=== PATIENT | female | born 1990 | race Caucasian/White ===

== ENCOUNTER 2020-02-15 06:54 | Inpatient (IN) | payer MEDICAID ==
[2020-02-15] MEDS ORDERED: Misoprostol 50 MCG (1/2 of 100 MCG) Tab VAG ONE ×2 (07:29→11:53)
[2020-02-15] MEDS ORDERED: Misoprostol 50 MCG (1/2 of 100 MCG) Tab ONE (07:32)
[2020-02-15] MEDS ORDERED: Acetaminophen 325 MG Tab PO PRN (07:41)
[2020-02-15] MEDS ORDERED: fentaNYL 100 MCG/2 ML SDV IVPUSH PRN (07:41)
[2020-02-15] MEDS ORDERED: Sodium Chloride 0.9% 10 ML Syringe FLUSH PRN (07:41)
--- NOTE | 2020-02-15 07:52 | PCM.LDHP ---
L&D History of Present Illness - General Date of Service: 02/15/20 (induction for PIH & smoker) Admit Problem/Dx: Patient Status Order with Admit Dx/Problem 02/15/20 07:41 Patient Status [ADT] Routine Admission Diagnosis/Problem Admission Diagnosis/Problem induced hypertension, antepartum Source of Information: Patient History Limitations: Reports: No Limitations - History of Present Illness Introduction:: This 30 year old who is 39 weeks gestation with a history of PIH, smoking and contractions. She currently is on Labetalol 100 mg BID for her blood pressure. She smoker 5 cigarettes a day. Blood pressure as been controlled for medication. The baby has also measured 2 weeks larger then dates. Her previous deliveries have been induced and she general progresses quickly. NST this morning reactive. Labs: Covid is negative ABO A pos HIV neg GBS neg Rubella immune - Related Data Allergies/Adverse Reactions: Allergies Allergy/AdvReac Type Severity Reaction Status Date / Time No Known Allergies Allergy Verified 01/08/20 10:08 Home Medications: Home Meds Omeprazole Magnesium [Prilosec Otc] 20 mg PO DAILY 01/08/20 [History] #103/Iron Fumarate/Fa [ ] 1 each PO DAILY 01/08/20 [ History] NIFEdipine [Procardia] 10 mg PO Q6H #120 cap 01/11/20 [Rx] Past Medical History HEENT History: Reports: None Cardiovascular History: Reports: None Respiratory History: Reports: None Gastrointestinal History: Reports: GERD Genitourinary History: Reports: None 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 Para: 2 LMP (Approximate): Musculoskeletal History: Reports: None Neurological History: Reports: Migraines Psychiatric History: Reports: Anxiety Endocrine/Metabolic History: Reports: None Hematologic History: Reports: Anemia Immunologic History: Reports: None Oncologic (Cancer) History: Reports: None Dermatologic History: Reports: None - Infectious Disease History Infectious Disease History: Reports: Chicken Pox - Past Surgical History Head Surgeries/Procedures: Reports: None HEENT Surgical History: Reports: None Cardiovascular Surgical History: Reports: None Respiratory Surgical History: Reports: None GI Surgical History: Reports: Cholecystectomy Female Surgical History: Reports: None Endocrine Surgical History: Reports: None Neurological Surgical History: Reports: None Musculoskeletal Surgical History: Reports: None Oncologic Surgical History: Reports: None Social & Family History - Tobacco Use Smoking Status *Q: Current Every Day Smoker Years of Tobacco use: 10 Packs/Tins Daily: 0.5 - Caffeine Use Caffeine Use: Reports: Coffee, Soda, Tea - Recreational Drug Use Recreational Drug Use: No H&P Review of Systems - Review of Systems: Review Of Systems: See Below General: Reports: No Symptoms HEENT: Reports: No Symptoms Pulmonary: Reports: No Symptoms Cardiovascular: Reports: No Symptoms Gastrointestinal: Reports: No Symptoms Genitourinary: Reports: No Symptoms Musculoskeletal: Reports: No Symptoms Skin: Reports: No Symptoms Psychiatric: Reports: No Symptoms Neurological: Reports: No Symptoms Hematologic/Lymphatic: Reports: No Symptoms Immunologic: Reports: No Symptoms L&D Exam - Exam Exam: See Below - Vital Signs Weight: 171 lb - OB Specific Contraction Intensity: Mild Movement: Active Heart Tones: Present Heart Tones per Min: 150 Heart Rate (FHR) Variability: Moderate (6-25 bmp) Presentation: Vertex Estimated Weight: 9-10 pounds - Diego Score Diego Score Cervix Position: Posterior Diego Score Consistency: Soft Diego Score Effacement: 51-70% Diego Score Dilation: 1-2 cm Diego Score Infant's Station: -2 Diego Score Total: 6 - Exam General: Alert, Oriented HEENT: PERRLA Neck: Supple Lungs: Clear to Auscultation Cardiovascular: Regular Rate GI/Abdominal Exam: Normal Bowel Sounds Rectal Exam: Normal Exam Genitourinary: Normal external exam Back Exam: Normal Inspection Extremities: No Pedal Edema, Normal Capillary Refill Skin: Warm Neurological: Cranial Nerves Intact, Reflexes Equal Bilateral Psychiatric: Alert, Normal Affect, Normal Mood - Problem List (1) Smoker SNOMED Code(s): 66887082 ICD Code: F17.200 - NICOTINE DEPENDENCE, UNSPECIFIED, UNCOMPLICATED Status : Acute Current Visit: Yes (2) Intrauterine SNOMED Code(s): 08601733 ICD Code: Z34.90 - ENCNTR FOR SUPRVSN OF NORMAL , UNSP, UNSP TRIMESTER Status: Acute Current Visit: Yes (3) PIH ( induced hypertension), antepartum SNOMED Code(s): 08845269, 64977654 ICD Code: O13.9 - GESTATIONAL HTN W/O SIGNIFICANT PROTEINURIA, UNSP TRIMESTER Status: Acute Current Visit: Yes Problem List Initiated/Reviewed/Updated: Yes Orders Last 24hrs: Active Orders 24 hr Category Date Time Status Patient Status [ADT] Routine ADT 02/15/20 07:41 Ordered Communication Order [RC] ASDIRECTED Care 02/15/20 07:41 Ordered Heart Tones [RC] PER UNIT ROUTINE Care 02/15/20 07:41 Ordered Non Stress Test [RC] Click to Edit Care 02/15/20 07:41 Ordered Notify Provider Vital Signs [RC] PRN Care 02/15/20 07:41 Ordered Notify Provider [RC] PRN Care 02/15/20 07:41 Ordered Up ad Jazmyn [RC] ASDIRECTED Care 02/15/20 07:41 Ordered Vital Signs [RC] PER UNIT ROUTINE Care 02/15/20 07:41 Ordered Regular Diet [DIET] Diet 02/15/20 Dinner Ordered CBC WITH AUTO DIFF [HEME] Routine Lab 02/15/20 07:36 Ordered DRUG SCREEN, URINE [URCHEM] Routine Lab 02/15/20 07:07 Ordered UA W/MICROSCOPIC [URIN] Routine Lab 02/15/20 07:07 Ordered Acetaminophen [Tylenol] Med 02/15/20 07:41 Ordered 650 mg PO Q4H PRN Oxytocin/Normal Saline [Pitocin in NS 20 Units/1,000 ML Med 02/15/20 07:44 Ordered ] 20 unit in 1,000 ml IV ONETIME Sodium Chloride 0.9% [Saline Flush] Med 02/15/20 07:41 Ordered 10 ml FLUSH ASDIRECTED PRN fentaNYL [Sublimaze] Med 02/15/20 07:41 Ordered 100 mcg IVPUSH Q1H PRN Saline Lock Insert [OM.PC] Routine Oth 02/15/20 07:41 Ordered Resuscitation Status Routine Resus Stat 02/15/20 07:41 Ordered Medication Orders Acetaminophen (Tylenol) 650 mg PO Q4H PRN PRN Reason: Pain (Mild 1-3) and fever Fentanyl (Sublimaze) 100 mcg IVPUSH Q1H PRN PRN Reason: Pain (moderate 4-6) Sodium Chloride (Saline Flush) 10 ml FLUSH ASDIRECTED PRN PRN Reason: Keep Vein Open Assessment/Plan Comment:: 02/15/20 30 year old 39 weeks PHI, smoker CE ft/50/-2, reactive NST, baseline FHT 150 episodic contractions Plan: Miso 50 mcg vaginally monitor for active labor plan for large baby reassess at noon, may place second dose of Miso
--- NOTE | 2020-02-15 12:20 | PCM.PNLD ---
Labor Progress Note - VS & Meds Vital Signs: Last Vital Signs Temp 98.8 F 02/15/20 11:30 Pulse 75 02/15/20 11:30 Resp 18 02/15/20 11:30 BP 118/57 L 02/15/20 11:30 Pulse Ox 97 02/15/20 11:30 Active Medications: Current Medications Acetaminophen (Tylenol) 650 mg PO Q4H PRN PRN Reason: Pain (Mild 1-3) and fever Fentanyl (Sublimaze) 100 mcg IVPUSH Q1H PRN PRN Reason: Pain (moderate 4-6) Sodium Chloride (Saline Flush) 10 ml FLUSH ASDIRECTED PRN PRN Reason: Keep Vein Open Discontinued Medications Oxytocin/Sodium Chloride (Pitocin In Ns 20 Units/1,000 Ml) 20 unit in 1,000 mls @ 999 mls/hr IV ONETIME ONE; Protocol Stop: 02/15/20 08:44 Misoprostol (Cytotec) 50 mcg VAG ONETIME ONE Stop: 02/15/20 07:30 Last Admin: 02/15/20 07:37 Dose: 50 mcg Misoprostol (Cytotec) Confirm Administered Dose 50 mcg .ROUTE .STK-MED ONE Stop: 02/15/20 07:33 Last Admin: 02/15/20 07:37 Dose: Not Given Misoprostol (Cytotec) 50 mcg VAG ONETIME ONE Stop: 02/15/20 11:54 Last Admin: 02/15/20 12:09 Dose: 50 mcg - Uterine Contractions Uterine Monitoring Mode: External [place] Contraction Frequency (min): 1-2 Contraction Duration (sec): 70-90 Contraction Intensity: Mild Uterine Resting Tone: Soft Other Uterine Monitoring: tele toco applied - Monitoring Monitor Mode: Doppler/Auscultation Heart Rate (FHR) Baseline: 150 Heart Rate (FHR) Variability: Moderate (6-25 bmp) Accelerations: Present, 15x15 Decelerations: None Strip Review: Category I - Vaginal Exam Dilation (cm): 1 Effacement (Percent): 50 Station: -1 Cervical Position: Anterior Sterile Vaginal Exam Performed By: Angela Siddiqui Vaginal Exam Comment: nice change from this morning. Tanner better, Cat one strip. second dose of miso placed. - Labor Progress (Free Text) Labor Progress: early labor monitor for change or rupture reassess at 3-4 pm
--- NOTE | 2020-02-15 15:26 | PCM.PNLD ---
Labor Progress Note - VS & Meds Vital Signs: Last Vital Signs Temp 98.6 F 02/15/20 13:15 Pulse 84 02/15/20 13:20 Resp 16 02/15/20 13:20 BP 115/59 L 02/15/20 13:20 Pulse Ox 96 02/15/20 13:20 Active Medications: Current Medications Acetaminophen (Tylenol) 650 mg PO Q4H PRN PRN Reason: Pain (Mild 1-3) and fever Fentanyl (Sublimaze) 100 mcg IVPUSH Q1H PRN PRN Reason: Pain (moderate 4-6) Sodium Chloride (Saline Flush) 10 ml FLUSH ASDIRECTED PRN PRN Reason: Keep Vein Open Discontinued Medications Oxytocin/Sodium Chloride (Pitocin In Ns 20 Units/1,000 Ml) 20 unit in 1,000 mls @ 999 mls/hr IV ONETIME ONE; Protocol Stop: 02/15/20 08:44 Misoprostol (Cytotec) 50 mcg VAG ONETIME ONE Stop: 02/15/20 07:30 Last Admin: 02/15/20 07:37 Dose: 50 mcg Misoprostol (Cytotec) Confirm Administered Dose 50 mcg .ROUTE .STK-MED ONE Stop: 02/15/20 07:33 Last Admin: 02/15/20 07:37 Dose: Not Given Misoprostol (Cytotec) 50 mcg VAG ONETIME ONE Stop: 02/15/20 11:54 Last Admin: 02/15/20 12:09 Dose: 50 mcg - Uterine Contractions Uterine Monitoring Mode: External [place] Contraction Frequency (min): 1-3 Contraction Duration (sec): 40-90 Contraction Intensity: Mild Uterine Resting Tone: Soft Other Uterine Monitoring: tele toco applied - Monitoring Monitor Mode: Doppler/Auscultation Heart Rate (FHR) Baseline: 150 Heart Rate (FHR) Variability: Moderate (6-25 bmp) Accelerations: Present, 15x15 Decelerations: None Strip Review: Category I - Vaginal Exam Dilation (cm): 1 Effacement (Percent): 70 Station: -1 Cervical Position: Anterior Sterile Vaginal Exam Performed By: Angela Siddiqui Vaginal Exam Comment: stripped her membranes - Labor Progress (Free Text) Labor Progress: cat one strip some cervical change Will add pitocin for better contractions plan for vaginal delivery
--- NOTE | 2020-02-15 17:27 | PCM.PNLD ---
Labor Progress Note - VS & Meds Vital Signs: Last Vital Signs Temp 98.2 F 02/15/20 15:30 Pulse 69 02/15/20 17:00 Resp 18 02/15/20 17:00 BP 126/68 02/15/20 17:00 Pulse Ox 98 02/15/20 17:00 Active Medications: Current Medications Acetaminophen (Tylenol) 650 mg PO Q4H PRN PRN Reason: Pain (Mild 1-3) and fever Fentanyl (Sublimaze) 100 mcg IVPUSH Q1H PRN PRN Reason: Pain (moderate 4-6) Oxytocin/Sodium Chloride (Pitocin In Ns 20 Units/1,000 Ml) 20 unit in 1,000 mls @ 3 mls/hr IV TITRATE COOKIE; Protocol Last Titration: 02/15/20 16:47 Dose: 2 munits/min, 6 mls/hr Sodium Chloride (Saline Flush) 10 ml FLUSH ASDIRECTED PRN PRN Reason: Keep Vein Open Discontinued Medications Oxytocin/Sodium Chloride (Pitocin In Ns 20 Units/1,000 Ml) 20 unit in 1,000 mls @ 999 mls/hr IV ONETIME ONE; Protocol Stop: 02/15/20 08:44 Misoprostol (Cytotec) 50 mcg VAG ONETIME ONE Stop: 02/15/20 07:30 Last Admin: 02/15/20 07:37 Dose: 50 mcg Misoprostol (Cytotec) Confirm Administered Dose 50 mcg .ROUTE .STK-MED ONE Stop: 02/15/20 07:33 Last Admin: 02/15/20 07:37 Dose: Not Given Misoprostol (Cytotec) 50 mcg VAG ONETIME ONE Stop: 02/15/20 11:54 Last Admin: 02/15/20 12:09 Dose: 50 mcg - Uterine Contractions Uterine Monitoring Mode: External [place] Contraction Frequency (min): 1.5-2 Contraction Duration (sec): 70-100 Contraction Intensity: Mild to Moderate Uterine Resting Tone: Soft Other Uterine Monitoring: tele toco applied - Monitoring Monitor Mode: Doppler/Auscultation Heart Rate (FHR) Baseline: 150 Heart Rate (FHR) Variability: Moderate (6-25 bmp) Accelerations: Present, 15x15 Decelerations: None Strip Review: Category I - Vaginal Exam Dilation (cm): 1 Effacement (Percent): 70 Station: -1 Cervical Position: Anterior Sterile Vaginal Exam Performed By: Angela Siddiqui Vaginal Exam Comment: stripped her membranes - Labor Progress (Free Text) Labor Progress: now is moni every 1-2 minutes. FHT 150 baseline, reactive NST Will check in two hours and attempt AROM plan for vaginal delivery
--- NOTE | 2020-02-15 19:00 | PCM.PNLD ---
Labor Progress Note - VS & Meds Vital Signs: Last Vital Signs Temp 99.2 F 02/15/20 17:30 Pulse 77 02/15/20 18:30 Resp 18 02/15/20 18:30 BP 129/75 02/15/20 18:30 Pulse Ox 98 02/15/20 18:30 Active Medications: Current Medications Acetaminophen (Tylenol) 650 mg PO Q4H PRN PRN Reason: Pain (Mild 1-3) and fever Fentanyl (Sublimaze) 100 mcg IVPUSH Q1H PRN PRN Reason: Pain (moderate 4-6) Oxytocin/Sodium Chloride (Pitocin In Ns 20 Units/1,000 Ml) 20 unit in 1,000 mls @ 3 mls/hr IV TITRATE COOKIE; Protocol Last Titration: 02/15/20 16:47 Dose: 2 munits/min, 6 mls/hr Sodium Chloride (Saline Flush) 10 ml FLUSH ASDIRECTED PRN PRN Reason: Keep Vein Open Discontinued Medications Oxytocin/Sodium Chloride (Pitocin In Ns 20 Units/1,000 Ml) 20 unit in 1,000 mls @ 999 mls/hr IV ONETIME ONE; Protocol Stop: 02/15/20 08:44 Last Admin: 02/15/20 18:43 Dose: Not Given Misoprostol (Cytotec) 50 mcg VAG ONETIME ONE Stop: 02/15/20 07:30 Last Admin: 02/15/20 07:37 Dose: 50 mcg Misoprostol (Cytotec) Confirm Administered Dose 50 mcg .ROUTE .STK-MED ONE Stop: 02/15/20 07:33 Last Admin: 02/15/20 07:37 Dose: Not Given Misoprostol (Cytotec) 50 mcg VAG ONETIME ONE Stop: 02/15/20 11:54 Last Admin: 02/15/20 12:09 Dose: 50 mcg - Uterine Contractions Uterine Monitoring Mode: External [place] Contraction Frequency (min): 1-3 Contraction Duration (sec): 60-100 Contraction Intensity: Mild to Moderate Uterine Resting Tone: Soft Other Uterine Monitoring: tele toco applied - Monitoring Monitor Mode: Doppler/Auscultation Heart Rate (FHR) Baseline: 150 Heart Rate (FHR) Variability: Moderate (6-25 bmp) Accelerations: Present, 15x15 Decelerations: None Strip Review: Category I - Vaginal Exam Dilation (cm): 3-4 Effacement (Percent): 70 Station: 0 Cervical Position: Anterior Sterile Vaginal Exam Performed By: Angela Siddiqui Vaginal Exam Comment: AROM clear - Labor Progress (Free Text) Labor Progress: active labor planning for vaginal delivery
[2020-02-15] MEDS ORDERED: Lactated Ringers 1,000 ML IV SCH (21:30)
[2020-02-15] MEDS ORDERED: ePHEDrine 50 MG/ML SDV IVPUSH PRN (21:54)
[2020-02-15] MEDS ORDERED: Lactated Ringers 1,000 ML IV ONE (21:54)
[2020-02-15] MEDS ORDERED: ePHEDrine 50 MG/ML SDV ONE (21:57)
[2020-02-15] MEDS ORDERED: Benzocaine 20% Top Spray 56 GM Bottle TOP ONE (22:27)
[2020-02-15] MEDS ORDERED: Witch Hazel Medicated Pads 100/Jar TOP ONE (22:27)
[2020-02-15] MEDS ORDERED: Lanolin 100% Cream 40 GM Tube TOP ONE (22:27)
[2020-02-15] MEDS ORDERED: Acetaminophen 325 MG Tab, 50 Tab Bulk Bottle PO PRN (22:27)
--- NOTE | 2020-02-15 22:58 | PCM.DEL ---
L & D Note - General Info Date of Service: 02/15/20 (Childbirth) Mother's Due Date: 02/22/20 - Delivery Note Labor: Induced by Oxytocin Cervical Ripening Method: Misoprostil Delivery Outcome: Livebirth Delivery Method: Spontaneous Vaginal Delivery-Single Delivery Mode: Spontaneous Presentation: Vertex Nuchal Cord: Present Anesthesia Type: Nitrous Oxide Amniotic Fluid Description: Clear Episiotomy Type: None Laceration: None Placenta: Intact, Spontaneous Cord: 3 Vessels Estimated Blood Loss: 200 Resuscitation Needed: No [place]: Bulb Syringe, Stimulated, Warmed, [place] Used Provider: Angela Siddiqui Score 1 min: 8 (color, respirations) Score 5 min: 9 (color) Second Stage Interventions: Reports: Pushing Effectively Delivery Comments (Free Text/Narrative):: This 30 year old G3 now P3 who is 39 weeks delivered via at 2200 over an intact perineum a viable male in side lying position. there was a nuchal cord that was reduced and he was placed on mother's chest. baby cried spontaneously. Apgars of 8,9. Three vessel cord. The placenta was expressed spontaneously intact. No lacerations of the cervix, vagina, rectum, perineum. EBL 200cc, delayed cord clamping and active management of the third stage were done. Baby to breast within 30 minutes of delivery. Mother and baby to post in stable condition weight 7-10 First stage 9279-1726 Second stage 4748-4064 Third stage 6204-7587 Induction Criteria - Diego Score Diego Score Dilation: 1-2 cm Diego Score Effacement: 40-50% Diego Score 's Station: -1 ,0 Diego Score Consistency: Soft Diego Score Cervix Position: Posterior Diego Score Total: 6 Diego Score Presenting Part: Reports: Cephalic - Induction Gestational Age >/= 39 wks: Yes Estimated Pelvis: Reports: Adequate Reassuring Monitoring Strip: Yes Absence of Tachy Systole: Yes - General Info Date of Service: 02/15/20 Admission Dx/Problem (Free Text): Patient Status Order with Admit Dx/Problem 02/15/20 07:41 Patient Status [ADT] Routine Admission Diagnosis/Problem Admission Diagnosis/Problem induced hypertension, antepartum Functional Status: Reports: Pain Controlled - Review of Systems General: Reports: No Symptoms HEENT: Reports: No Symptoms Pulmonary: Reports: No Symptoms Cardiovascular: Reports: No Symptoms Gastrointestinal: Reports: No Symptoms Genitourinary: Reports: No Symptoms Musculoskeletal: Reports: No Symptoms Skin: Reports: No Symptoms Neurological: Reports: No Symptoms Psychiatric: Reports: No Symptoms - Patient Data Vitals - Most Recent: Last Vital Signs Temp 99 F 02/15/20 19:30 Pulse 69 02/15/20 19:30 Resp 18 02/15/20 19:30 BP 132/83 02/15/20 19:30 Pulse Ox 97 02/15/20 19:30 Weight - Most Recent: 171 lb Lab Results Last 24 Hours: Laboratory Results - last 24 hr 02/15/20 02/15/20 02/15/20 Range/Units 07:07 07:07 07:36 WBC 10.3 (4.5-11.0) K/uL RBC 3.93 (3.30-5.50) M/uL Hgb 10.8 L (12.0-15.0) g/dL Hct 33.6 L (36.0-48.0) % MCV 86 (80-98) fL MCH 28 (27-31) pg MCHC 32 (32-36) % Plt Count 272 (150-400) K/uL Neut % (Auto) 79 H (36-66) % Lymph % (Auto) 15 L (24-44) % [place] % (Auto) 6 (2-6) % Eos % (Auto) 1 L (2-4) % Baso % (Auto) 0 (0-1) % Urine Color Yellow (YELLOW) Urine Appearance Clear (CLEAR) Urine pH 7.0 (5.0-8.0) Ur Specific [place] 1.020 (1.008-1.030) Urine Protein Negative (NEGATIVE) mg/dL Urine Glucose (UA) Negative (NEGATIVE) mg/dL Urine Ketones Negative (NEGATIVE) mg/dL Urine Occult Blood Negative (NEGATIVE) Urine Nitrite Negative (NEGATIVE) Urine Bilirubin Negative (NEGATIVE) Urine Urobilinogen 0.2 (0.2-1.0) EU/dL Ur Leukocyte Esterase Negative (NEGATIVE) Urine RBC 0-5 (0-5) Urine WBC 0-5 (0-5) Ur Epithelial Cells Not seen Amorphous Sediment Not seen Urine Bacteria Not seen Urine Mucus Not seen Urine Opiates Screen Negative (NEGATIVE) Ur Oxycodone Screen Negative (NEGATIVE) Urine Methadone Screen Negative (NEGATIVE) Ur Propoxyphene Screen Negative (NEGATIVE) Ur Barbiturates Screen Negative (NEGATIVE) Ur Tricyclics Screen Negative (NEGATIVE) Ur Phencyclidine Scrn Negative (NEGATIVE) Ur Amphetamine Screen Negative (NEGATIVE) U Methamphetamines Scrn Negative (NEGATIVE) Urine MDMA Screen Negative (NEGATIVE) U Benzodiazepines Scrn Negative (NEGATIVE) U Cocaine Metab Screen Negative (NEGATIVE) U Marijuana (THC) Screen Negative (NEGATIVE) Med Orders - Current: Current Medications Acetaminophen (Tylenol) 650 mg PO Q4H PRN PRN Reason: Pain (Mild 1-3) and fever Ephedrine Sulfate (Ephedrine Sulfate) 10 mg IVPUSH ASDIRECTED PRN PRN Reason: Hypotension Fentanyl (Sublimaze) 100 mcg IVPUSH Q1H PRN PRN Reason: Pain (moderate 4-6) Last Admin: 02/15/20 20:48 Dose: 100 mcg Oxytocin/Sodium Chloride (Pitocin In Ns 20 Units/1,000 Ml) 20 unit in 1,000 mls @ 3 mls/hr IV TITRATE COOKIE; Protocol Last Titration: 02/15/20 16:47 Dose: 2 munits/min, 6 mls/hr Lactated Ringer's (Ringers, Lactated) 1,000 mls @ 100 mls/hr IV ASDIRECTED COOKIE Lactated Ringer's (Ringers, Lactated) 1,000 mls @ 999 mls/hr IV .BOLUS ONE Stop: 02/15/20 22:54 Sodium Chloride (Saline Flush) 10 ml FLUSH ASDIRECTED PRN PRN Reason: Keep Vein Open Discontinued Medications Ephedrine Sulfate (Ephedrine Sulfate) Confirm Administered Dose 50 mg .ROUTE .STK-MED ONE Stop: 02/15/20 21:58 Oxytocin/Sodium Chloride (Pitocin In Ns 20 Units/1,000 Ml) 20 unit in 1,000 mls @ 999 mls/hr IV ONETIME ONE; Protocol Stop: 02/15/20 08:44 Last Admin: 02/15/20 18:43 Dose: Not Given Misoprostol (Cytotec) 50 mcg VAG ONETIME ONE Stop: 02/15/20 07:30 Last Admin: 02/15/20 07:37 Dose: 50 mcg Misoprostol (Cytotec) Confirm Administered Dose 50 mcg .ROUTE .STK-MED ONE Stop: 02/15/20 07:33 Last Admin: 02/15/20 07:37 Dose: Not Given Misoprostol (Cytotec) 50 mcg VAG ONETIME ONE Stop: 02/15/20 11:54 Last Admin: 02/15/20 12:09 Dose: 50 mcg - Exam General: Alert, Oriented HEENT: Pupils Equal, Pupils Reactive Neck: Supple Lungs: Clear to Auscultation, Normal Respiratory Effort Cardiovascular: Regular Rate, Regular Rhythm GI/Abdominal Exam: Normal Bowel Sounds, Soft, Non-Tender (Female) Exam: Normal External Exam, Cervical Dilatation, Enlarged Uterus, Vaginal Bleeding Back Exam: Normal Inspection, Full Range of Motion Extremities: Normal Inspection, No Pedal Edema Skin: Warm, Dry, Intact Neurological: No New Focal Deficit Psy/Mental Status: Alert, Normal Affect, Normal Mood - Problem List & Annotations (1) Smoker SNOMED Code(s): 12202121 Code(s): F17.200 - NICOTINE DEPENDENCE, UNSPECIFIED, UNCOMPLICATED Status: Acute Current Visit: Yes (2) Intrauterine SNOMED Code(s): 72818741 Code(s): Z34.90 - ENCNTR FOR SUPRVSN OF NORMAL , UNSP, UNSP TRIMESTER Status: Acute Current Visit: Yes (3) PIH ( induced hypertension), antepartum SNOMED Code(s): 80013876, 54687728 Code(s): O13.9 - GESTATIONAL HTN W/O SIGNIFICANT PROTEINURIA, UNSP TRIMESTER Status: Acute Current Visit: Yes (4) Vaginal delivery SNOMED Code(s): 445625702 Code(s): O80 - ENCOUNTER FOR FULL-TERM UNCOMPLICATED DELIVERY Status: Acute Current Visit: Yes - Problem List Review Problem List Initiated/Reviewed/Updated: Yes - My Orders Last 24 Hours: My Active Orders 02/15/20 07:41 Communication Order [RC] ASDIRECTED Non Stress Test [RC] Click to Edit Notify Provider Vital Signs [RC] PRN Notify Provider [RC] PRN Up ad Jazmyn [RC] ASDIRECTED Vital Signs [RC] PER UNIT ROUTINE Acetaminophen [Tylenol] 650 mg PO Q4H PRN Sodium Chloride 0.9% [Saline Flush] 10 ml FLUSH ASDIRECTED PRN fentaNYL [Sublimaze] 100 mcg IVPUSH Q1H PRN Saline Lock Insert [OM.PC] Routine Resuscitation Status Routine 02/15/20 16:30 Oxytocin/Normal Saline [Pitocin in NS 20 Units/1,000 ML] 20 unit in 1,000 ml IV TITRATE 02/15/20 19:44 Communication Order [RC] Per Unit Routine Communication Order [RC] Per Unit Routine Communication Order [RC] Per Unit Routine Nitrous Oxide Delivery [RC] ASDIRECTED Oxygen Therapy [RC] ASDIRECTED Pulse Oximetry [RC] ASDIRECTED Verify Patient Consent Obtain [RC] ASDIRECTED Vital Signs [RC] PER UNIT ROUTINE 02/15/20 21:30 Lactated Ringers [Ringers, Lactated] 1,000 ml IV ASDIRECTED 02/15/20 21:54 Communication Order [RC] ASDIRECTED Local Anesthetic Infusion Pump [RC] ASDIRECTED PCEA Epidural [RC] ASDIRECTED PCEA Epidural [RC] ASDIRECTED Urinary Catheter Assessment [RC] ASDIRECTED Lactated Ringers [Ringers, Lactated] 1,000 ml IV .BOLUS ePHEDrine [ePHEDrine sulfate] 10 mg IVPUSH ASDIRECTED PRN Epidural Catheter Management [OM.PC] Urgent 02/15/20 22:00 Insert Urinary Catheter [OM.PC] ASDIRECTED 02/15/20 22:27 Acetaminophen [Tylenol Bulk Bottle] See Dose Instructions PO Q4H PRN Benzocaine [Qlrz-M-Mottetg 20% [place]] See Dose Instructions TOP Q4H ONE Lanolin [Lansinoh HPA] 1 gm TOP ASDIRECTED ONE witch Ugo [Tucks] 1 pad TOP ASDIRECTED ONE Assess Lochia [WOMSER] Per Unit Routine Assess Uterine Involution [WOMSER] Per Unit Routine DVT/VTE Prophylaxis Reflex [OM.PC] Routine 02/15/20 22:28 Patient Status [ADT] Routine Vital Signs [RC] PFP 02/15/20 22:29 Antiembolic Devices [RC] .Routine VTE/DVT Education [RC] Click to Edit 02/15/20 Dinner Regular Diet [DIET] 02/16/20 05:11 CBC WITH AUTO DIFF [HEME] AM - Assessment Assessment:: 02/15/20 30 year old 39 week gestation G3 now P3 delivered without complications male breast feeding - Plan Plan:: 02/15/20 30 year old 39 weeks PHI, smoker CE ft/50/-2, reactive NST, baseline FHT 150 episodic contractions Plan: Miso 50 mcg vaginally monitor for active labor plan for large baby reassess at noon, may place second dose of Miso 11/17/19 cbc in AM support 24-48 hour stay
--- NOTE | 2020-02-16 08:30 | PCM.PNPP ---
- General Info Date of Service: 02/16/20 Functional Status: Reports: Pain Controlled - Review of Systems General: Reports: No Symptoms HEENT: Reports: No Symptoms Pulmonary: Reports: No Symptoms Cardiovascular: Reports: No Symptoms Gastrointestinal: Reports: No Symptoms Genitourinary: Reports: No Symptoms Musculoskeletal: Reports: No Symptoms Skin: Reports: No Symptoms Neurological: Reports: No Symptoms Psychiatric: Reports: No Symptoms - General Info Date of Service: 02/16/20 - Patient Data Vital Signs - Most Recent: Last Vital Signs Temp 35.9 C L 02/16/20 07:25 Pulse 69 02/16/20 07:25 Resp 16 02/16/20 07:25 BP 111/56 L 02/16/20 07:25 Pulse Ox 98 02/16/20 07:25 Weight - Most Recent: 77.564 kg I&O - Last 24 Hours: Intake & Output 02/15/20 02/16/20 02/16/20 22:59 06:59 14:59 Intake Total 2636 Balance 2636 Lab Results - Last 24 Hours: Laboratory Results - last 24 hr 02/16/20 Range/Units 05:37 WBC 19.3 H (4.5-11.0) K/uL RBC 3.94 (3.30-5.50) M/uL Hgb 10.9 L (12.0-15.0) g/dL Hct 33.5 L (36.0-48.0) % MCV 85 (80-98) fL MCH 28 (27-31) pg MCHC 33 (32-36) % Plt Count 262 (150-400) K/uL Neut % (Auto) 84 H (36-66) % Lymph % (Auto) 9 L (24-44) % [place] % (Auto) 7 H (2-6) % Eos % (Auto) 0 L (2-4) % Baso % (Auto) 0 (0-1) % Med Orders - Current: Current Medications Acetaminophen (Tylenol) 650 mg PO Q4H PRN PRN Reason: Pain (Mild 1-3) and fever Acetaminophen (Tylenol Bulk Bottle) 0 mg PO Q4H PRN PRN Reason: Pain Last Admin: 02/16/20 00:26 Dose: 1 bottle Oxytocin/Sodium Chloride (Pitocin In Ns 20 Units/1,000 Ml) 20 unit in 1,000 mls @ 3 mls/hr IV TITRATE COOKIE; Protocol Last Titration: 02/15/20 22:45 Dose: 125 mls/hr Sodium Chloride (Saline Flush) 10 ml FLUSH ASDIRECTED PRN PRN Reason: Keep Vein Open Discontinued Medications Benzocaine ([id number]-J-Lvysmft 20% [place]) 0 gm TOP Q4H ONE Stop: 02/15/20 22:28 Last Admin: 02/16/20 00:26 Dose: 1 applic Emollient Ointment (Lansinoh Hpa) 1 gm TOP ASDIRECTED ONE Stop: 02/15/20 22:28 Last Admin: 02/16/20 00:27 Dose: 1 applic Ephedrine Sulfate (Ephedrine Sulfate) 10 mg IVPUSH ASDIRECTED PRN PRN Reason: Hypotension Ephedrine Sulfate (Ephedrine Sulfate) Confirm Administered Dose 50 mg .ROUTE .STK-MED ONE Stop: 02/15/20 21:58 Last Admin: 02/15/20 23:05 Dose: Not Given Fentanyl (Sublimaze) 100 mcg IVPUSH Q1H PRN PRN Reason: Pain (moderate 4-6) Last Admin: 02/15/20 20:48 Dose: 100 mcg Oxytocin/Sodium Chloride (Pitocin In Ns 20 Units/1,000 Ml) 20 unit in 1,000 mls @ 999 mls/hr IV ONETIME ONE; Protocol Stop: 02/15/20 08:44 Last Admin: 02/15/20 18:43 Dose: Not Given Lactated Ringer's (Ringers, Lactated) 1,000 mls @ 100 mls/hr IV ASDIRECTED [facility] Lactated Ringer's (Ringers, Lactated) 1,000 mls @ 999 mls/hr IV .BOLUS ONE Stop: 02/15/20 22:54 Last Admin: 02/15/20 21:30 Dose: 999 mls/hr Misoprostol (Cytotec) 50 mcg VAG ONETIME ONE Stop: 02/15/20 07:30 Last Admin: 02/15/20 07:37 Dose: 50 mcg Misoprostol (Cytotec) Confirm Administered Dose 50 mcg .ROUTE .STK-MED ONE Stop: 02/15/20 07:33 Last Admin: 02/15/20 07:37 Dose: Not Given Misoprostol (Cytotec) 50 mcg VAG ONETIME ONE Stop: 02/15/20 11:54 Last Admin: 02/15/20 12:09 Dose: 50 mcg Witch Mary (Tucks) 1 pad TOP ASDIRECTED ONE Stop: 02/15/20 22:28 Last Admin: 02/16/20 00:27 Dose: 1 pad - Infant Interaction Infant Disposition, : in Room with Family Infant Interaction: Holding Infant Infant Feeding: Attempted ; Nursed Fair/Poor Support Person: Significant Other - Recovery Exam Fundal Tone: Firm Fundal Level: At Umbilicus Fundal Placement: Midline Lochia Amount: Small Lochia Color: Rubra/Red Perineum Description: Intact, Minimal Bruising/Swelling Episiotomy/Laceration: None Urinary Elimination: Voided - Exam General: Alert, Oriented HEENT: Pupils Equal, Pupils Reactive, EOMI, Mucous Membr. Moist/[place] Neck: Supple Lungs: Clear to Auscultation, Normal Respiratory Effort Cardiovascular: Regular Rate, Regular Rhythm. No: No Murmurs GI/Abdominal Exam: Normal Bowel Sounds, Soft, Non-Tender, No Organomegaly, No Distention, No Abnormal Bruit, No Mass, Pelvis Stable Extremities: Normal Inspection, Normal Range of Motion, Non-Tender, No Pedal Edema, Normal Capillary Refill Skin: Warm, Dry, Intact Neurological: No New Focal Deficit Psy/Mental Status: Alert, Normal Affect, Normal Mood - Problem List & Annotations (1) Intrauterine SNOMED Code(s): 04737872 Code(s): Z34.90 - ENCNTR FOR SUPRVSN OF NORMAL , UNSP, UNSP TRIMESTER Status: Acute Current Visit: Yes (2) PIH ( induced hypertension), antepartum SNOMED Code(s): 95069738, 44177615 Code(s): O13.9 - GESTATIONAL HTN W/O SIGNIFICANT PROTEINURIA, UNSP TRIMESTER Status: Acute Current Visit: Yes (3) Smoker SNOMED Code(s): 28953558 Code(s): F17.200 - NICOTINE DEPENDENCE, UNSPECIFIED, UNCOMPLICATED Status: Acute Current Visit: Yes (4) Vaginal delivery SNOMED Code(s): 095527890 Code(s): O80 - ENCOUNTER FOR FULL-TERM UNCOMPLICATED DELIVERY Status: Acute Current Visit: Yes - Problem List Review Problem List Initiated/Reviewed/Updated: Yes - Assessment Assessment:: 02/15/20 30 year old 39 week gestation G3 now P3 delivered without complications male breast feeding 02/16/20 day 1 , no complications FF, bleeding moderate with a couple of clots Hgb 10.9, WBC 19.3 is going fair to poor currently, needs help with latch - Plan Plan:: 02/15/20 30 year old 39 weeks PHI, smoker CE ft/50/-2, reactive NST, baseline FHT 150 episodic contractions Plan: Miso 50 mcg vaginally monitor for active labor plan for large baby reassess at noon, may place second dose of Miso 11/17/19 cbc in AM support 24-48 hour stay 02/16/20 Recheck CBC in am support today Anticipate discharge home tomorrow Will order BP medications to be continued Routine cares
[2020-02-16] MEDS ORDERED: Ibuprofen 200 MG Tab, 24 Tab Bulk Bottle PO PRN (09:16)
[2020-02-16] MEDS: Labetalol 100 MG Tab PO SCH ×2 (10:24→20:57)
--- NOTE | 2020-02-17 08:34 | PCM.PNPP ---
- General Info Date of Service: 02/17/20 Functional Status: Reports: Pain Controlled - Review of Systems General: Reports: No Symptoms HEENT: Reports: No Symptoms Pulmonary: Reports: No Symptoms Cardiovascular: Reports: No Symptoms Gastrointestinal: Reports: No Symptoms Genitourinary: Reports: No Symptoms Musculoskeletal: Reports: No Symptoms Skin: Reports: No Symptoms Neurological: Reports: No Symptoms Psychiatric: Reports: No Symptoms - General Info Date of Service: 02/17/20 - Patient Data Vital Signs - Most Recent: Last Vital Signs Temp 36.0 C L 02/17/20 07:04 Pulse 53 L 02/17/20 07:04 Resp 18 02/17/20 07:04 BP 129/68 02/17/20 07:04 Pulse Ox 95 02/17/20 07:04 Weight - Most Recent: 77.564 kg I&O - Last 24 Hours: Intake & Output 02/16/20 02/17/20 02/17/20 22:59 06:59 14:59 Intake Total 240 Balance 240 Lab Results - Last 24 Hours: Laboratory Results - last 24 hr 02/17/20 Range/Units 08:03 WBC 12.5 H (4.5-11.0) K/uL RBC 4.02 (3.30-5.50) M/uL Hgb 11.0 L (12.0-15.0) g/dL Hct 34.9 L (36.0-48.0) % MCV 87 (80-98) fL MCH 27 (27-31) pg MCHC 32 (32-36) % Plt Count 267 (150-400) K/uL Neut % (Auto) 76 H (36-66) % Lymph % (Auto) 16 L (24-44) % [place] % (Auto) 7 H (2-6) % Eos % (Auto) 1 L (2-4) % Baso % (Auto) 0 (0-1) % Med Orders - Current: Current Medications Acetaminophen (Tylenol) 650 mg PO Q4H PRN PRN Reason: Pain (Mild 1-3) and fever Acetaminophen (Tylenol Bulk Bottle) 0 mg PO Q4H PRN PRN Reason: Pain Last Admin: 02/16/20 00:26 Dose: 1 bottle Oxytocin/Sodium Chloride (Pitocin In Ns 20 Units/1,000 Ml) 20 unit in 1,000 mls @ 3 mls/hr IV TITRATE COOKIE; Protocol Last Titration: 02/15/20 22:45 Dose: 125 mls/hr Ibuprofen (Motrin Bulk Bottle) 600 mg PO Q6H PRN PRN Reason: Pain Last Admin: 02/16/20 09:29 Dose: 600 mg Labetalol HCl (Normodyne) 100 mg PO BID COOKIE Last Admin: 02/16/20 20:57 Dose: 100 mg Sodium Chloride (Saline Flush) 10 ml FLUSH ASDIRECTED PRN PRN Reason: Keep Vein Open Discontinued Medications Benzocaine (Wyzf-K-Uixfrcs 20% [place]) 0 gm TOP Q4H ONE Stop: 02/15/20 22:28 Last Admin: 02/16/20 00:26 Dose: 1 applic Emollient Ointment (Lansinoh Hpa) 1 gm TOP ASDIRECTED ONE Stop: 02/15/20 22:28 Last Admin: 02/16/20 00:27 Dose: 1 applic Ephedrine Sulfate (Ephedrine Sulfate) 10 mg IVPUSH ASDIRECTED PRN PRN Reason: Hypotension Ephedrine Sulfate (Ephedrine Sulfate) Confirm Administered Dose 50 mg .ROUTE .STK-MED ONE Stop: 02/15/20 21:58 Last Admin: 02/15/20 23:05 Dose: Not Given Fentanyl (Sublimaze) 100 mcg IVPUSH Q1H PRN PRN Reason: Pain (moderate 4-6) Last Admin: 02/15/20 20:48 Dose: 100 mcg Oxytocin/Sodium Chloride (Pitocin In Ns 20 Units/1,000 Ml) 20 unit in 1,000 mls @ 999 mls/hr IV ONETIME ONE; Protocol Stop: 02/15/20 08:44 Last Admin: 02/15/20 18:43 Dose: Not Given Lactated Ringer's (Ringers, Lactated) 1,000 mls @ 100 mls/hr IV ASDIRECTED [facility] Lactated Ringer's (Ringers, Lactated) 1,000 mls @ 999 mls/hr IV .BOLUS ONE Stop: 02/15/20 22:54 Last Admin: 02/15/20 21:30 Dose: 999 mls/hr Misoprostol (Cytotec) 50 mcg VAG ONETIME ONE Stop: 02/15/20 07:30 Last Admin: 02/15/20 07:37 Dose: 50 mcg Misoprostol (Cytotec) Confirm Administered Dose 50 mcg .ROUTE .STK-MED ONE Stop: 02/15/20 07:33 Last Admin: 02/15/20 07:37 Dose: Not Given Misoprostol (Cytotec) 50 mcg VAG ONETIME ONE Stop: 02/15/20 11:54 Last Admin: 02/15/20 12:09 Dose: 50 mcg [place] Mary (Tucks) 1 pad TOP ASDIRECTED ONE Stop: 02/15/20 22:28 Last Admin: 02/16/20 00:27 Dose: 1 pad - Infant Interaction Infant Disposition, : [place] in Room with Family Interaction: Holding Infant Feeding: Breastfed Infant; Nursed Well Support Person: Significant Other - Recovery Exam Fundal Tone: Firm Fundal Level: 1 Fingerbreadths Below Umbilicus Fundal Placement: Midline Lochia Amount: Moderate Lochia Color: Rubra/Red Perineum Description: Intact, Minimal Bruising/Swelling Episiotomy/Laceration: None Bladder Status: Voiding Urinary Elimination: Voided - Exam General: Alert, Oriented HEENT: Pupils Equal Neck: Supple Lungs: Clear to Auscultation, Normal Respiratory Effort Cardiovascular: Regular Rate, Regular Rhythm GI/Abdominal Exam: Normal Bowel Sounds, Soft, Non-Tender, No Organomegaly, No Distention, No Mass, Pelvis Stable Extremities: Normal Inspection, Normal Range of Motion, Non-Tender, No Pedal Edema, Normal Capillary Refill Skin: Warm, Dry, Intact Neurological: No New Focal Deficit Psy/Mental Status: Alert, Normal Affect, Normal Mood - Problem List & Annotations (1) Intrauterine SNOMED Code(s): 69273699 Code(s): Z34.90 - ENCNTR FOR SUPRVSN OF NORMAL , UNSP, UNSP TRIMESTER Status: Acute Current Visit: Yes (2) PIH ( induced hypertension), antepartum SNOMED Code(s): 19940448, 53077605 Code(s): O13.9 - GESTATIONAL HTN W/O SIGNIFICANT PROTEINURIA, UNSP TRIMESTER Status: Acute Current Visit: Yes (3) Smoker SNOMED Code(s): 83562066 Code(s): F17.200 - NICOTINE DEPENDENCE, UNSPECIFIED, UNCOMPLICATED Status: Acute Current Visit: Yes (4) Vaginal delivery SNOMED Code(s): 953303983 Code(s): O80 - ENCOUNTER FOR FULL-TERM UNCOMPLICATED DELIVERY Status: Acute Current Visit: Yes - Problem List Review Problem List Initiated/Reviewed/Updated: Yes - My Orders Last 24 Hours: My Active Orders 02/16/20 09:16 Ibuprofen [Motrin Bulk Bottle] 600 mg PO Q6H PRN 02/16/20 10:30 Labetalol [Normodyne] 100 mg PO BID - Assessment Assessment:: 02/15/20 30 year old 39 week gestation G3 now P3 delivered without complications male breast feeding 02/16/20 day 1 , no complications FF, bleeding moderate with a couple of clots Hgb 10.9, WBC 19.3 is going fair to poor currently, needs help with latch 02/17/20 day 2, no complications Bleeding light to moderate, FF WBC down to 12.5, hgb 11.0 going better BP stable - Plan Plan:: 02/15/20 30 year old 39 weeks PHI, smoker CE ft/50/-2, reactive NST, baseline FHT 150 episodic contractions Plan: Miso 50 mcg vaginally monitor for active labor plan for large baby reassess at noon, may place second dose of Miso 11/17/19 cbc in AM support 24-48 hour stay 02/16/20 Recheck CBC in am support today Anticipate discharge home tomorrow Will order BP medications to be continued Routine cares 02/17/20 Routine cares Discharge home today Patient will check BP at home over the weekend. She is going home with 100 mg labetalol BID, she will increase to TID if her BP is > 130/80. Breastpump ordered
[2020-02-17] MEDS: Labetalol 100 MG Tab PO SCH (08:43)
== END 2020-02-17 10:15 | disposition home or self-care (01) | DRG 807 ==
LOC: JP.OBCHECK 06:54 → EDSTATUS 06:56 → JP.OB 06:57 → OBSVTOIN 22:00 → JP.OB 22:00 → JP.MS 02-16 00:50
PROVIDERS: ADMIT Nurse Practitioner Family; ATTEND Nurse Practitioner Family
PROC: 10E0XZZ Delivery of Products of Conception, External Approach (ICD-10-PCS; principal; 2020-02-15)
PROC: 3E0P7VZ Introduction of Hormone into Female Reproductive, Via Natural or Artificial Opening (ICD-10-PCS; 2020-02-15)
PROC: 3E033VJ Introduction of Other Hormone into Peripheral Vein, Percutaneous Approach (ICD-10-PCS; 2020-02-15)
DX: O13.4 Gestational [pregnancy-induced] hypertension without significant proteinuria, complicating childbirth (principal); Z37.0 Single live birth; O99.334 Smoking (tobacco) complicating childbirth; F17.210 Nicotine dependence, cigarettes, uncomplicated; O99.62 Diseases of the digestive system complicating childbirth; K21.9 Gastro-esophageal reflux disease without esophagitis; O69.81X0 Labor and delivery complicated by cord around neck, without compression, not applicable or unspecified; Z3A.39 39 weeks gestation of pregnancy
CPT/HCPCS: 36415; 59409; 80305-QW; 81001; 85025; A9270-GY; J2590; J3010; J7120

== ENCOUNTER 2022-04-07 22:34 | Emergency (ER) | payer MEDICAID ==
[2022-04-08] MEDS ORDERED: Sodium Chloride 0.9% 10 ML Syringe FLUSH PRN ×3 (00:30→01:40)
[2022-04-08] MEDS ORDERED: Ondansetron 4 MG/2 ML SDV IVPUSH ONE (00:30)
[2022-04-08 01:01] LABS: ESTIMATED GFR 123 mL/min (>60)
[2022-04-08] MEDS ORDERED: Lactated Ringers 1,000 ML IV ONE (01:03)
[2022-04-08] MEDS ORDERED: Morphine 2 MG/ML SYRINGE IVPUSH ONE ×2 (01:04→02:31)
[2022-04-08] MEDS ORDERED: Ketorolac 30 MG/ML SDV IVPUSH ONE (01:04)
[2022-04-08] MEDS ORDERED: Potassium Chloride 20 MEQ Tab.ER PO ONE (01:05)
[2022-04-08] MEDS ORDERED: Sodium Chloride 0.9% 50 ML IV ONE (01:40)
[2022-04-08] MEDS ORDERED: Iopamidol 612 MG/ML 100 ML Bottle IV PRN (01:40)
[2022-04-08] MEDS ORDERED: HYDROmorphone 0.5 MG/0.5 ML Syringe IVPUSH ONE (02:59)
[2022-04-08] MEDS ORDERED: Metoclopramide 10 MG/2 ML SDV IVPUSH ONE (02:59)
== END 2022-04-08 03:36 | disposition home or self-care (01) ==
LOC: JP.ED 22:34
DX: K57.30 Diverticulosis of large intestine without perforation or abscess without bleeding (principal); E86.0 Dehydration; E87.2 Acidosis; E87.6 Hypokalemia; R11.2 Nausea with vomiting, unspecified; R19.7 Diarrhea, unspecified; Z86.16 Personal history of COVID-19; Z20.822 Contact with and (suspected) exposure to COVID-19
CPT/HCPCS: 36415; 74177; 80053; 81001; 81025; 82803; 83605; 85025; 86140; 87635; 96361; 96374; 96375; 96376; 99284; A9270; J1170; J1885; J2270; J2405; J2765; J3490; J7120; Q9967; U0002